=== PATIENT | female | born 1990 | race African-American/Black ===

== ENCOUNTER 2022-08-06 06:21 | Day surgery (SDC) | payer OTHER ==
[2022-08-03 12:50] VITALS: BMI 25.8
[2022-08-06] MEDS ORDERED: BUPIVACAINE HCL/EPINEPHRINE/PF 30 ML VIAL IJ ONE (07:20)
[2022-08-06] MEDS ORDERED: GENTAMICIN SO4 80 MG/2 ML VIAL ONE (07:20)
[2022-08-06] MEDS ORDERED: ceFAZolin SODIUM 1 GM VIAL ONE ×2 (07:20→09:56)
[2022-08-06] MEDS ORDERED: VANCOMYCIN 1,000 MG VIAL (RESTRICTED TO ID ONLY) ONE (07:20)
[2022-08-06] MEDS ORDERED: EPINEPHrine/PF 1 MG/1 ML (1:1,000) AMPULE ONE (07:25)
[2022-08-06] MEDS ORDERED: LIDOCAINE HCL 2% (20ML MULTI-DOSE VIAL) ONE (07:25)
[2022-08-06] MEDS ORDERED: SODIUM BICARBONATE 8.4% 50 MEQ/50 ML VIAL ONE (07:25)
[2022-08-06] MEDS ORDERED: MIDAZOLAM HCL 2 MG/2 ML SINGLE DOSE VIAL ONE (07:36)
[2022-08-06] MEDS ORDERED: PROPOFOL 80 ML ONE (07:36)
[2022-08-06] MEDS ORDERED: SUCCINYLCHOLINE CHLORIDE 200 MG/10 ML SYRINGE ONE (07:36)
[2022-08-06] MEDS ORDERED: LIDOCAINE HCL/PF 2% SDV 5ML VIAL ONE (07:37)
[2022-08-06] MEDS ORDERED: LIDOCAINE HCL 2% JELLY 11 ML TP ONE (07:38)
[2022-08-06] MEDS ORDERED: DEXAMETHASONE SOD PHOSPHATE 4 MG/1 ML VIAL ONE (09:56)
[2022-08-06] MEDS ORDERED: ONDANSETRON 4 MG/2 ML VIAL ONE (09:56)
[2022-08-06] MEDS ORDERED: KETOROLAC TROMETHAMINE 30 MG/1 ML VIAL ONE (09:56)
[2022-08-06] MEDS ORDERED: BACITRACIN 15 GM TUBE TOPICAL OINTMENT ONE (10:01)
[2022-08-06] MEDS ORDERED: ONDANSETRON 4 MG/2 ML VIAL IVPUSH PRN (10:25)
[2022-08-06] MEDS ORDERED: oxyCODONE HCL 5 MG TABLET PO PRN ×2 (10:25)
[2022-08-06] MEDS ORDERED: PROMETHAZINE HCL 25 MG/1 ML VIAL IVPUSH PRN (10:25)
[2022-08-06] MEDS ORDERED: ACETAMINOPHEN 1000 MG/100 ML BAG IVPB PRN (10:26)
[2022-08-06 10:53] VITALS: RESP 16
[2022-08-06 11:21] VITALS: TEMP 98.8
[2022-08-06 11:52] VITALS: BP 107/64; PULSE 90
== END 2022-08-06 12:30 | disposition home or self-care (01) ==
LOC: FASU 06:21
PROVIDERS: ATTEND Plastic Surgery
PROC: [UNRECOGNIZED PROCEDURE] (2022-08-06)
PROC: 0HNV0ZZ Release Bilateral Breast, Open Approach (ICD-10-PCS; principal; 2022-08-06 08:30)
PROC: [UNRECOGNIZED PROCEDURE] (2022-08-06 08:30)
DX: C50.911 Malignant neoplasm of unspecified site of right female breast (principal); Z90.13 Acquired absence of bilateral breasts and nipples; N65.0 Deformity of reconstructed breast
CPT/HCPCS: 19342; 19370; 19380; L8600; 71045-TC-FY; 88300-TC; 88305-TC; 88341-TC; 88342-TC; 94760

== ENCOUNTER 2023-02-25 12:08 | Day surgery (SDC) | payer OTHER ==
[2023-02-19 11:03] VITALS: BMI 26.5
[2023-02-25] MEDS ORDERED: ONDANSETRON 4 MG/2 ML VIAL IVPUSH PRN (12:58)
[2023-02-25] MEDS ORDERED: oxyCODONE HCL 5 MG TABLET PO PRN (12:58)
[2023-02-25] MEDS ORDERED: PROMETHAZINE HCL 25 MG/1 ML VIAL IVPB PRN (12:58)
[2023-02-25] MEDS ORDERED: LACTATED RINGERS SOLUTION 1,000 ML IV SCH (13:00)
[2023-02-25] MEDS ORDERED: EPINEPHrine/PF 1 MG/1 ML (1:1,000) AMPULE ONE (13:12)
[2023-02-25] MEDS ORDERED: SODIUM BICARBONATE 8.4% 50 MEQ/50 ML VIAL ONE (13:13)
[2023-02-25] MEDS ORDERED: LIDOCAINE HCL 1%, 10 MG/ML (20ML VIAL) ONE (13:13)
[2023-02-25] MEDS ORDERED: MIDAZOLAM HCL 2 MG/2 ML SINGLE DOSE VIAL ONE (13:26)
[2023-02-25] MEDS ORDERED: PROPOFOL 20 ML ONE (13:26)
[2023-02-25] MEDS ORDERED: LIDOCAINE HCL/PF 2% SDV 5ML VIAL ONE (13:27)
[2023-02-25] MEDS ORDERED: ceFAZolin SODIUM 1 GM VIAL ONE (13:28)
[2023-02-25] MEDS ORDERED: DEXAMETHASONE SOD PHOSPHATE 4 MG/1 ML VIAL ONE (13:58)
[2023-02-25] MEDS ORDERED: ONDANSETRON 4 MG/2 ML VIAL ONE (13:58)
[2023-02-25] MEDS ORDERED: ACETAMINOPHEN INJECTION 100 ML IVPB ONE (14:48)
[2023-02-25] MEDS ORDERED: NEOSTIGMINE METHYLSULFATE 0.5 MG/1 ML - 10 ML MDV ONE (14:52)
[2023-02-25] MEDS ORDERED: GLYCOPYRROLATE 0.2 MG/1 ML VIAL ONE (14:52)
[2023-02-25] MEDS ORDERED: KETOROLAC TROMETHAMINE 30 MG/1 ML VIAL ONE (15:01)
[2023-02-25 16:58] VITALS: PULSE 92; RESP 18
[2023-02-25 17:02] VITALS: BP 121/78; TEMP 97.8
== END 2023-02-25 17:02 | disposition home or self-care (01) ==
LOC: FASU 12:08
PROVIDERS: ATTEND Plastic Surgery
PROC: 0HQX0ZZ Repair Left Nipple, Open Approach (ICD-10-PCS; 2023-02-25)
PROC: 0HQW0ZZ Repair Right Nipple, Open Approach (ICD-10-PCS; 2023-02-25)
PROC: 0HRV37Z Replacement of Bilateral Breast with Autologous Tissue Substitute, Percutaneous Approach (ICD-10-PCS; principal; 2023-02-25 13:57)
DX: Z85.3 Personal history of malignant neoplasm of breast (principal); Z90.13 Acquired absence of bilateral breasts and nipples; N65.0 Deformity of reconstructed breast
CPT/HCPCS: 81025; 94760